=== PATIENT | female | born 1975 | race Caucasian/White ===

== ENCOUNTER 2021-09-14 08:47 | Outpatient (REF) | payer OTHER, SELFPAY ==
--- NOTE | ~2021-09-14 | XR_ITS ---
EXAMINATION: XR SHOULDER, RIGHT CLINICAL INFORMATION: Pain. COMPARISON: None TECHNIQUE: AP external rotation, Grashey, scapular Y, and axillary views of the right shoulder. FINDINGS: There is no evidence of acute fracture or dislocation of the right shoulder. No calcific tendinitis. Glenohumeral joint unremarkable. No significant abnormality of the acromioclavicular joint is seen. There is no widening of the coracoclavicular space. XR/XR shoulder RT min 2V IMPRESSION: No significant bony abnormality of the right shoulder identified.
[2021-09-14 11:26] LABS: Appearance Urine CLOUDY; Color Urine RED; Glucose Urine UA NEG (NEG); Leukocyte Esterase Urine NEG (NEG); Nitrite Urine POS (NEG); Urine Blood 3+ (NEG); Urine Ketones 5 MG/DL (NEG); Urine Protein 2+ MG/DL (NEG-TRACE)
[2021-09-14 11:35] LABS: Hemoglobin 12.5 g/dl (12.0-16.0); Mean Corpuscular HGB Conc 32.1 g/dl (31.0-35.0); Mean Corpuscular Hemoglobin 29.8 pg (27.0-33.0); Mean Corpuscular Volume 93.1 fL (80.0-98.0); Platelet Count 262 X10*3/uL (160-400); Red Blood Count 4.19 X10*6/uL (4.20-5.50); Red Cell Distribution Width 13.5 % (11.0-16.0); White Blood Count 5.4 X10*3/uL (4.8-10.8)
[2021-09-14 11:49] LABS: Alanine Aminotransferase 16 U/L (0-31); Albumin Level 4.1 g/dL (3.5-5.0); Alkaline Phosphatase 56 U/L (39-117); Anion Gap 10 (12-20); Aspartate Amino Transferase 14 U/L (5-31); Bilirubin Total 0.4 mg/dL (0.0-1.0); Blood Urea Nitrogen 11 mg/dL (9-16); Calcium 9.4 mg/dL (8.4-10.2); Carbon Dioxide 28 mmol/L (22-29); Chloride 105 mmol/L (96-108); Cholesterol 185 mg/dL; Estimated Glomerular Filt Rate > 60; Glucose Fasting 95 mg/dL (60-99); HDL Cholesterol 48 mg/dL; LDL Cholesterol Calculated 126 mg/dl; Potassium 4.4 mmol/L (3.3-5.1); Sodium 139 mmol/L (135-145); Total Protein 6.7 g/dL (6.5-8.0); Triglycerides 55 mg/dL
[2021-09-14 12:11] LABS: TSH reflex Free T4 0.69 uIU/mL (0.32-4.0)
[2021-09-14 12:11] LABS: Bacteria Urine TRACE /LPF; Mucus Urine 2+ /LPF; RBC Urine TNTC /HPF (0); Squamous Epithelial Cell Urine 1+ /LPF; WBC Urine 0-2 /HPF (0-4)
== END 2021-09-14 08:48 | disposition home or self-care (01) ==
LOC: HO.HMGCX 08:47
PROVIDERS: PCP Internal Medicine; Visit Provider Internal Medicine
DX: Z00.00 Encounter for general adult medical examination without abnormal findings (principal); M25.511 Pain in right shoulder
CPT/HCPCS: 36415; 73030; 80053; 80061; 81001; 84443; 85027

== ENCOUNTER → 2022-01-19 08:00 | Outpatient (BNVA) | payer OTHER, SELFPAY | PROVIDERS: PCP Internal Medicine; Visit Provider Internal Medicine Rheumatology | DX: I73.00 Raynaud's syndrome without gangrene (principal); M25.561 Pain in right knee; M25.562 Pain in left knee; M25.50 Pain in unspecified joint; R31.9 Hematuria, unspecified; M25.559 Pain in unspecified hip | CPT/HCPCS: 99202 ==

== ENCOUNTER 2022-04-07 07:18 | Outpatient (REF) | payer OTHER, SELFPAY ==
[2022-04-07 11:38] LABS: Appearance Urine Clear; Color Urine Yellow; Glucose Urine UA Negative (Negative); Leukocyte Esterase Urine Trace (Negative); Nitrite Urine Negative (Negative); PH 7.5 (5.0-9.0); Specific Gravity - Urine 1.025 (1.005-1.025); UMIC TRIGGER UA YES; UMIC TRIGGER UACC YES; Urine Blood Negative (Negative); Urine Ketones Negative (Negative); Urine Protein Trace mg/dL (Neg-Trace)
[2022-04-07 11:46] LABS: Bacteria Urine 1+ (None Seen); Hyaline Casts Urine 0-2 /LPF (0-2); RBC Urine 0-2 /HPF (0-2); WBC Urine 0-5 /HPF (0-5)
[2022-04-07 12:08] LABS: Alanine Aminotransferase 13 U/L (0-31); Albumin Level 4.2 g/dL (3.5-5.0); Alkaline Phosphatase 59 U/L (39-117); Anion Gap 15 (12-20); Aspartate Amino Transferase 16 U/L (5-31); Bilirubin Total 0.6 mg/dL (0.0-1.0); Blood Urea Nitrogen 12 mg/dL (9-16); C Reactive Protein 0.31 mg/dL (< or = 0.50); Calcium 9.1 mg/dL (8.4-10.2); Carbon Dioxide 24 mmol/L (22-29); Chloride 105 mmol/L (96-108); Estimated Glomerular Filt Rate > 60; Glucose Random 75 mg/dL (60-115); Potassium 4.1 mmol/L (3.3-5.1); Rheumatoid Factor < 15.0 IU/mL (<15.0); Sodium 140 mmol/L (135-145); Total Protein 6.6 g/dL (6.5-8.0)
[2022-04-07 12:32] LABS: Erythrocyte Sedimentation Rate 9 MM/HR (0-20)
[2022-04-12 13:45] LABS: Anti Nuclear Antibody Screen NEGATIVE (NEGATIVE)
[2022-04-13 13:21] LABS: Anti-Centromere B Antibodies <1.0 NEG AI (<1.0 NEG); Scleroderma 70 Antibody <1.0 NEG AI (<1.0 NEG)
== END 2022-04-07 07:19 | disposition home or self-care (01) ==
LOC: HO.HMGCLDS 07:18
PROVIDERS: Absent Provider Internal Medicine Rheumatology; PCP Internal Medicine; Visit Provider Internal Medicine
DX: I73.00 Raynaud's syndrome without gangrene (principal); M25.561 Pain in right knee; M25.562 Pain in left knee
CPT/HCPCS: 36415; 80053; 81001; 85652; 86038; 86039; 86140; 86235; 86431

== ENCOUNTER 2023-06-15 08:41 | Outpatient (AMB) | payer OTHER, SELFPAY ==
[2023-06-15 08:44] VITALS: BP 120/68; PULSE 79; O2SAT 99; BMI 33.5
--- NOTE | 2023-06-15 08:44 | A.OFFPC_ITS ---
Vital Signs 06/15/23 08:44 Height 5 ft 2 in Weight 183 lb BMI 33.5 BP 120/68 Blood Pressure Location Lt brachial Position Sitting Pulse 79 Pulse Source Pulse Oximeter Pulse Oximetry (%) 99 Oxygen Delivery Method Room Air Intake Visit Reasons: Discuss MRI For Back Intake Note: Pt is here today for a follow up visit to discuss MRI for her back. Allergies bee pollen [BEE POLLEN] Allergy (Intermediate, Unverified 06/15/23 08:46) RASH sulfur [From SULFUR-8] Allergy (Intermediate, Unverified 06/15/23 08:46) FEVER, RASH, fever,hallucinations, fever,hallucinations adhesive Adverse Reaction (Verified 06/15/23 08:46) rash Medication List - Last Reconciled 06/15/23 by Yulia Lambert MD No Known Home Meds Tobacco use date assessed: 06/15/23 Dental Screening Dental Screen Date: 06/15/23 Did you have a dental visit in the last 12 months?: Yes Did you have a dental problem in the last 6 months where you did not have access to dental care?: No Was dental information given to patient?: Patient has dentist HPI Discuss MRI For Back HPI Details Pt presents for f/u Urgent Care visit for sciatica. Pt complains of chronic L>R LE numbness and pain, and L knee pain on and off when walking. She reports her left knee giving out occasionally. Patient was hospitalized for 3 days at [facility] in 2019 with acute sciatica. She had an MRI done and improved with the physical therapy. Patient denies lower extremity weakness, change in bladder or bowel function. For acute sciatica she took Medrol Dosepak and cyclobenzaprine and the pain improved. [facility] Medical History Annual physical exam Hematuria Atopic dermatitis Raynauds disease Shoulder pain, right GERD (gastroesophageal reflux disease) Surgical History H/O bilateral breast reduction surgery Social History Household Members Other:: lives with a partner, daughter addict, Housing: House Housing Other:: Pt show not to answer Patient Tobacco Use Status: Former Tobacco user e-Cigarette/Vaping Use: Never Used service: No Current occupational status: employed Cognitive needs: No Hearing needs: No Vision needs: Yes Questionnaire PHQ-9 Over the last 2 weeks, how often have you been bothered by any of the following problems? 62301 - PHQ-9 Billing: Patient declined-do not bill Source: Developed by Drs. Jake Montilla, Danica Webster, Larry Rivas and colleagues, with an educational naveed from [employer]. Thrive Questionnaire Date Thrive assessed: 06/15/23 I am a: Patient What is your living situation today?: I choose not to answer this question Within the past 12 months, did the food you bought not last and you didn't have the money to get more?: I choose not to answer this question Within the past 12 months, did you worry whether your food would run out before you got money to buy more?: I choose not to answer this question Do you have trouble paying for medicines?: I choose not to answer this question Do you have trouble getting transportation to medical appointments?: I choose not to answer this question Do you have trouble paying your heating and electricity bill?: I choose not to answer this question Do you have trouble taking care of your child, family member or friend?: I choose not to answer this question Do you have trouble with day-to-day activities such as bathing, preparing meals, shopping, managing finances, etc.?: I choose not to answer this question Are you currently unemployed and looking for a job?: I choose not to answer this question Are you interested in more education?: I choose not to answer this question Currently or been in a relationship where the following occur: I choose not to answer this question THRIVE Score: 0 AUDIT C Alcohol Use Questionnaire (AUDIT-C) 1. How often do you have a drink containing alcohol?: Never 3. How often do you have six or more drinks on one occasion?: Never Total Score: 0 MINA-7 AMB Questionnaire MINA-7 Date MINA - 7 assessed: 06/15/23 Source: Developed by Drs. Jake Montilla, Danica Webster, Larry Rivas and colleagues, with an educational naveed from [employer]. MINA-7 Assessment Billing MINA-7 Assessment Tool: pt declined-do not bill Review of Systems Const All systems reviewed & are unremarkable except as noted in HPI and below Reports no additional complaints Eyes Reports no additional complaints ENT Reports no additional complaints Card Reports no additional complaints Resp Reports no additional complaints GI Reports no additional complaints Reports no additional complaints Physical exam (Primary Care) Vital Signs: Last Vital Signs Pulse 79 06/15/23 08:44 BP 120/68 06/15/23 08:44 Pulse Ox 99 06/15/23 08:44 Oxygen Delivery Method Room Air 06/15/23 08:44 BMI result Body Mass Index 33.5 Tobacco/Smoking Status: Tobacco use Status Tobacco use date assessed 06/15/23 06/15/23 08:51 Patient Tobacco Use Status Former Tobacco user 06/15/23 08:51 e-Cigarette/Vaping Use Never Used 06/15/23 08:51 Thrive Assessment: Date of Thrive Assessment Date Thrive assessed 06/15/23 06/15/23 09:22 Currently or been in a relationship where the following occur: I choose not to answer this question Const General: no acute distress HENMT Head: Yes normal to inspection Resp Effort & Inspection: normal respiratory effort Auscultation: clear to auscultation bilaterally Cardio Rhythm: regular rhythm Heart sounds: S1 normal heart sound present and S2 normal heart sound present GI Inspection: Yes normal to inspection Palpation (GI): Soft to palpation Back/Spine/Pelvis Other: Paraspinal tenderness in lower lumbar region left more than right, straight leg rising 90 degrees bilaterally, deep tendon reflexes 1+ bilaterally, motor strength 5/5 both lower extremities Assessment and Plan Assessment & Plan (1) Chronic lumbar pain: Comment: L SPINE X-RAY DJD L3-4, 06/20 Code(s): M54.50 - Low back pain, unspecified; G89.29 - Other chronic pain Plan: REFER FOR PHYSICAL THERAPY, and return in 1 month for physical (2) Annual physical exam: Code(s): Z00.00 - Encounter for general adult medical examination without abnormal findings Plan: Patient will return for a physical with a fasting labs before (3) GERD (gastroesophageal reflux disease): Comment: f/u [facility], EGD and colonoscopy 2021. esophageal dilation 2021 Code(s): K21.9 - Gastro-esophageal reflux disease without esophagitis Orders: Orders PT Evaluation and Treatment Today G89.29 - Other chronic pain, M25.561 - Pain in right knee, M25.562 - Pain in left knee, M54.50 - Low back pain, unspecified, Z00.00 - Encounter for general adult medical examination without abnormal findings Comprehensive [place]. Panel Fast Today K21.9 - Gastro-esophageal reflux disease without esophagitis, Z00.00 - Encounter for general adult medical examination without abnormal findings Complete Blood Count Auto Diff Today K21.9 - Gastro-esophageal reflux disease without esophagitis, Z00.00 - Encounter for general adult medical examination without abnormal findings Vitamin B12 and Folate Today K21.9 - Gastro-esophageal reflux disease without esophagitis, Z00.00 - Encounter for general adult medical examination without abnormal findings Hemoglobin A1c Today K21.9 - Gastro-esophageal reflux disease without esophagitis, Z00.00 - Encounter for general adult medical examination without abnormal findings Lipid Panel Today K21.9 - Gastro-esophageal reflux disease without esophagitis, Z00.00 - Encounter for general adult medical examination without abnormal findings UA w Microscopic Today K21. - Gastro-esophageal reflux disease without esophagitis, Z00.00 - Encounter for general adult medical examination without abnormal findings Coding Level of Care Code Est Pt Level 3 (58058) Diagnoses Chronic lumbar pain M54.50; G89.29 Annual physical exam Z00.00 GERD (gastroesophageal reflux disease) K21.9
== END 2023-06-15 10:56 | disposition home or self-care (01) ==
PROVIDERS: PCP Internal Medicine; Visit Provider Internal Medicine
DX: M54.50 Low back pain, unspecified (principal); G89.29 Other chronic pain; K21.9 Gastro-esophageal reflux disease without esophagitis
CPT/HCPCS: 99213

== ENCOUNTER 2023-07-06 10:51 | Outpatient (REF) | payer OTHER, SELFPAY ==
[2023-07-06 13:22] LABS: MANUAL DIFF FLAG NO
[2023-07-06 13:32] LABS: Basophils Percent Auto 0.5 % (0-2); Eosinophils Absolute Auto 0.1 X10*3/uL (0.0-0.4); Eosinophils Percent Auto 1.3 % (0-4); Hematocrit 39.1 % (37.0-47.0); Hemoglobin 12.7 g/dl (12.0-16.0); Imm Gran Abs Auto 0.02 X10*3/uL (0.00-0.03); Imm Gran Pct Auto 0.3 % (0.0-0.4); Lymphocytes Absolute Auto 1.3 X10*3/uL (1.2-4.9); Lymphocytes Percent Auto 20.5 % (20-40); Mean Corpuscular HGB Conc 32.5 g/dl (31.0-35.0); Mean Corpuscular Hemoglobin 30.4 pg (27.0-33.0); Mean Corpuscular Volume 93.5 fL (80.0-98.0); Mean Platelet Volume 11.9 fL (9.4-12.3); Monocytes Absolute Auto 0.3 X10*3/uL (0.1-1.2); Monocytes Percent Auto 5.4 % (2-11); Neutrophils Absolute Auto 4.5 x10*3/uL (2.0-8.3); Platelet Count 230 X10*3/uL (160-400); Red Blood Count 4.18 X10*6/uL (4.20-5.50); Red Cell Distribution Width 12.9 % (11.0-16.0); White Blood Count 6.2 X10*3/uL (4.8-10.8)
[2023-07-06 14:16] LABS: Alanine Aminotransferase 11 U/L (0-31); Albumin Level 3.8 g/dL (3.5-5.0); Alkaline Phosphatase 57 U/L (39-117); Anion Gap 12 (12-20); Aspartate Amino Transferase 14 U/L (5-31); Bilirubin Total 0.5 mg/dL (0.0-1.0); Blood Urea Nitrogen 9 mg/dL (9-16); Calcium 8.8 mg/dL (8.4-10.2); Carbon Dioxide 23 mmol/L (22-29); Chloride 107 mmol/L (96-108); Cholesterol 170 mg/dL (<200); Estimated Glomerular Filt Rate > 60; Glucose Fasting 87 mg/dL (60-99); HDL Cholesterol 47 mg/dL (>40); LDL Cholesterol Calculated 107 mg/dL (<100); Sodium 138 mmol/L (135-145); Total Protein 6.3 g/dL (6.5-8.0); Triglycerides 81 mg/dL (<150)
[2023-07-06 15:02] LABS: Estimated Average Glucose 97 mg/dL
[2023-07-06 15:33] LABS: Vitamin B12 221 pg/mL (200-900)
== END 2023-07-06 10:52 | disposition home or self-care (01) ==
LOC: HO.HMGCLDS 10:51
PROVIDERS: PCP Internal Medicine; Visit Provider Internal Medicine
DX: Z00.00 Encounter for general adult medical examination without abnormal findings (principal); K21.9 Gastro-esophageal reflux disease without esophagitis
CPT/HCPCS: 36415; 80053; 80061; 82607; 82746; 83036; 85025

== ENCOUNTER 2023-07-27 13:21 | Outpatient (AMB) | payer OTHER, SELFPAY ==
[2023-07-27 13:48] VITALS: BP 116/64; PULSE 66; O2SAT 99; BMI 33.5
--- NOTE | 2023-07-27 13:48 | A.OFFPC_ITS ---
Vital Signs 07/27/23 13:48 Height 5 ft 2 in Weight 183 lb BMI 33.5 BP 116/64 Blood Pressure Location Lt brachial Position Sitting Pulse 66 Pulse Source Pulse Oximeter Pulse Oximetry (%) 99 Oxygen Delivery Method Room Air Intake Visit Reasons: Annual PE Intake Note: Pt is here today for PE. Allergies bee pollen [BEE POLLEN] Allergy (Intermediate, Unverified 07/27/23 13:50) RASH sulfur [From SULFUR-8] Allergy (Intermediate, Unverified 07/27/23 13:50) FEVER, RASH, fever,hallucinations, fever,hallucinations adhesive Adverse Reaction (Verified 07/27/23 13:50) rash Medication List - Last Reconciled 07/27/23 by Yulia Lambert MD No Known Home Meds Tobacco use date assessed: 07/27/23 HPI Annual PE HPI Details Patient presents for physical. She complains of persistent lower back pain radiating to left lower extremity and intermittent tingling numbness of the left leg radiating to big toe. Patient had physical therapy and has been doing home exercises for the last 6 weeks without significant improvement. She denies change in bowel or bladder habits, weakness in the left lower extremity. Patient complains of chronic left knee pain and stiffness worse when walking. [facility] Medical History (Updated 07/27/23 @ 14:27 by Yulia Lambert MD) Annual physical exam Hematuria Atopic dermatitis Raynauds disease Shoulder pain, right GERD (gastroesophageal reflux disease) Surgical History H/O bilateral breast reduction surgery Social History Household Members Other:: lives with a partner, daughter addict, Housing: House Housing Other:: Pt show not to answer Patient Tobacco Use Status: Former Tobacco user e-Cigarette/Vaping Use: Never Used service: No Current occupational status: employed Cognitive needs: No Hearing needs: No Vision needs: Yes Questionnaire Thrive Questionnaire Date Thrive assessed: 06/15/23 MINA-7 AMB Questionnaire MINA-7 Date MINA - 7 assessed: 06/15/23 Source: Developed by Drs. Jake Montilla, Danica Webster, Larry Rivas and colleagues, with an educational naveed from [employer]. Review of Systems Const All systems reviewed & are unremarkable except as noted in HPI and below Reports no additional complaints Eyes Reports no additional complaints ENT Reports no additional complaints Card Reports no additional complaints Resp Reports no additional complaints GI Reports no additional complaints Reports no additional complaints Physical exam (Primary Care) Vital Signs: Last Vital Signs Pulse 66 07/27/23 13:48 BP 116/64 07/27/23 13:48 Pulse Ox 99 07/27/23 13:48 Oxygen Delivery Method Room Air 07/27/23 13:48 BMI result Body Mass Index 33.5 Tobacco/Smoking Status: Tobacco use Status Tobacco use date assessed 07/27/23 07/27/23 13:54 Patient Tobacco Use Status Former Tobacco user 07/27/23 13:54 e-Cigarette/Vaping Use Never Used 07/27/23 13:54 Thrive Assessment: Date of Thrive Assessment Date Thrive assessed 06/15/23 07/27/23 13:54 Const General: no acute distress HENMT Ears: hearing grossly normal bilaterally Mouth: Normal oral and palatal mucosa present Throat: Yes posterior oropharynx normal Eyes General: appearance normal, both eyes and all related structures Neck Neck: Yes no lymphadenopathy and Yes supple Resp Effort & Inspection: normal respiratory effort Auscultation: clear to auscultation bilaterally Cardio Rhythm: regular rhythm Heart sounds: S1 normal heart sound present and S2 normal heart sound present GI Inspection: Yes normal to inspection Palpation (GI): Soft to palpation Percussion: Yes normal to percussion Auscultation: normal bowel sounds Back/Spine/Pelvis Other: There is tenderness over lower lumbar spinal and paraspinal region left more than right, straight leg rising 45 degrees on the left 90 degrees on the right, both hips with full range of motion. there is a reproducible tenderness over left trochanteric area. there is slightly decreased range of motion of left knee no soft tissue swelling erythema or warmth, deep tendon reflexes are 1+ bilaterally, heel and toe walk intact bilaterally, motor strength 5/5 bilaterally in LE Assessment and Plan Assessment & Plan (1) Sciatica: Code(s): M54.30 - Sciatica, unspecified side Plan: FOR PERSISTENT SCIATICA WITH LEFT LOWER EXTREMITY NUMBNESS MRI LUMBAR SPINE WILL BE OBTAINED to rule out disc herniation. Patient will continue physical therapy and meloxicam is prescribed for 10 days (2) Knee pain, left: Code(s): M25.562 - Pain in left knee Plan: Check x-ray of left knee (3) Hx of mammogram: Comment: [facility] 2022 Code(s): Z92.89 - Personal history of other medical treatment (4) Chronic lumbar pain: Comment: L SPINE X-RAY DJD L3-4, 06/20 Code(s): M54.50 - Low back pain, unspecified; G89.29 - Other chronic pain (5) Annual physical exam: Code(s): Z00.00 - Encounter for general adult medical examination without abnormal findings Plan: Well-balanced diet regular physical activity discussed with the patient. She follows up with research librarian for pelvic exam and it is up-to-date with the mammogram and colonoscopy (6) GERD (gastroesophageal reflux disease): Comment: f/u [facility], EGD and colonoscopy 2021. esophageal dilation 2021 Code(s): K21.9 - Gastro-esophageal reflux disease without esophagitis Plan: Continue PPI. Orders: Orders MR lumbar spine wo con Today M54.30 - Sciatica, unspecified side XR knee LT 2V Today M25.562 - Pain in left knee PT Evaluation and Treatment Today G89.29 - Other chronic pain, M54.30 - Sciatica, unspecified side, M54.50 - Low back pain, unspecified Medications: New meloxicam 15 mg PO DAILY 10 tabs 0RF Coding Level of Care Code Est Pt Prev Care 40-64y(60286) Diagnoses Sciatica M54.30 Knee pain, left M25.562 Hx of mammogram Z92.89 Chronic lumbar pain M54.50; G89.29 Annual physical exam Z00.00 GERD (gastroesophageal reflux disease) K21.9
== END 2023-07-27 14:56 | disposition home or self-care (01) ==
PROVIDERS: PCP Internal Medicine; Visit Provider Internal Medicine
DX: Z00.00 Encounter for general adult medical examination without abnormal findings (principal); M54.30 Sciatica, unspecified side; M25.562 Pain in left knee; Z92.89 Personal history of other medical treatment; M54.50 Low back pain, unspecified; G89.29 Other chronic pain; K21.9 Gastro-esophageal reflux disease without esophagitis
CPT/HCPCS: 99396

== ENCOUNTER 2023-07-27 14:41 | Outpatient (REF) | payer OTHER, SELFPAY ==
--- NOTE | ~2023-07-27 | XR_ITS ---
EXAMINATION: XR KNEE, LEFT CLINICAL INFORMATION: Pain in left knee COMPARISON: None available. TECHNIQUE: Four views of the left knee. FINDINGS: The tricompartment joint space is preserved. There is no visible acute fracture or dislocation. No bony erosive changes. No joint effusion. XR/XR knee LT 2V IMPRESSION: Unremarkable left knee exam.
== END 2023-07-27 14:42 | disposition home or self-care (01) ==
LOC: HO.HMGCX 14:41
PROVIDERS: PCP Internal Medicine; Visit Provider Internal Medicine
DX: M25.562 Pain in left knee (principal)
CPT/HCPCS: 73560

== ENCOUNTER 2023-07-30 11:42 | Outpatient (REF) | payer OTHER, SELFPAY | END 2023-07-30 11:43 | disposition home or self-care (01) | LOC: HO.HMGCLNP 11:42 | PROVIDERS: Visit Provider Internal Medicine | DX: Z13.89 Encounter for screening for other disorder (principal) ==

== ENCOUNTER 2023-08-28 19:43 | Outpatient (REF) | payer OTHER, SELFPAY ==
--- NOTE | ~2023-08-28 | MR_ITS ---
MR LUMBAR SPINE WITHOUT IV CONTRAST CLINICAL INFORMATION: Sciatica. COMPARISON: Lumbar spine MRI 06/10/2018. TECHNIQUE: MRI of the lumbar spine was obtained using routine sequences without contrast. FINDINGS: There are 5 nonrib-bearing lumbar-type vertebral bodies. Hypoplastic ribs suspected at the lowermost thoracic type segment. The last completely developed intervertebral disc is considered L5-S1. There is no bone marrow edema. There are no acute fractures. There is mild disc volume loss and there is disc desiccation at L2-L3 and L4-L5. Small chronic endplate Schmorl's nodes at T11, T12, and L4. Conus terminates at the T12-L1 level. There are no significant extra spinal soft tissue findings. L1-L2: Disc contour is normal. No central canal stenosis and no foraminal stenosis. L2-L3: Small diffuse annular disc bulge. There is no central canal stenosis and there is no foraminal stenosis. L3-L4: There is a large left lateral disc protrusion resulting in moderate to severe left-sided foraminal stenosis and compression of the foraminal and extraforaminal segments of the exiting left L3 nerve root. No central canal and no right foraminal stenosis. L4-L5: A left lateral disc protrusion results in moderate left-sided foraminal stenosis and mass effect on the extraforaminal left L4 nerve root. No central canal and no significant right foraminal stenosis. L5-S1: Disc contour is normal. There is bilateral facet arthropathy. There is no central canal stenosis. No foraminal stenosis. MR/MR lumbar spine wo con IMPRESSION: * At L3-L4, there is a large left lateral disc protrusion resulting in moderate to severe left-sided foraminal stenosis and compression of the foraminal and extraforaminal segments of the exiting left L3 nerve root. * At L4-L5, a left lateral disc protrusion results in moderate left-sided foraminal stenosis and mass effect on the extraforaminal left L4 nerve root. * Additional spondylitic changes as discussed above. There is no severe central canal stenosis within the lumbar spine.
== END 2023-08-28 19:44 | disposition home or self-care (01) ==
LOC: HO.MRI 19:43
PROVIDERS: PCP Internal Medicine; Visit Provider Internal Medicine
DX: M54.30 Sciatica, unspecified side (principal)
CPT/HCPCS: 72148

== ENCOUNTER 2024-01-09 10:06 | Outpatient (AMB) | payer OTHER, SELFPAY ==
[2024-01-09 10:11] VITALS: BP 114/76; PULSE 57; O2SAT 100; BMI 33.5
--- NOTE | 2024-01-09 10:11 | A.OFFPC_ITS ---
Vital Signs 01/09/24 10:11 Height 5 ft 2 in Weight 183 lb BMI 33.5 BP 114/76 Blood Pressure Location Lt brachial Position Sitting Pulse 57 Pulse Source Pulse Oximeter Pulse Oximetry (%) 100 Oxygen Delivery Method Room Air Intake Visit Reasons: Knee problems Intake Note: Pt is here today for a sick visit. Pt c/o L knee pain and swelling. Allergies bee pollen [BEE POLLEN] Allergy (Intermediate, Unverified 01/09/24 10:11) RASH sulfur [From SULFUR-8] Allergy (Intermediate, Unverified 01/09/24 10:11) FEVER, RASH, fever,hallucinations, fever,hallucinations adhesive Adverse Reaction (Verified 01/09/24 10:11) rash Medication List - Last Reconciled 01/09/24 by Yulia Lambert MD meloxicam 15 mg PO DAILY Tobacco use date assessed: 01/09/24 Dental Screening Dental Screen Date: 06/15/23 HPI Knee problems HPI Details Pt c/o persistent chronic L knee pain and swelling under the left knee on and off since April when patient developed acute sciatica. The pain is worse when patient is walking. She took meloxicam with some relief. Patient has been doing some home exercises without significant improvement of the pain. Knee x-ray was negative and MRI was declined by her previous insurance. [facility] Medical History Annual physical exam Hematuria Atopic dermatitis Raynauds disease Shoulder pain, right GERD (gastroesophageal reflux disease) Surgical History H/O bilateral breast reduction surgery Social History Household Members Other:: lives with a partner, daughter addict, Housing: House Housing Other:: Pt show not to answer Patient Tobacco Use Status: Former Tobacco user e-Cigarette/Vaping Use: Never Used service: No Current occupational status: employed Cognitive needs: No Hearing needs: No Vision needs: Yes Questionnaire Thrive Questionnaire Date Thrive assessed: 01/09/24 I am a: Patient What is your living situation today?: I choose not to answer this question Within the past 12 months, did the food you bought not last and you didn't have the money to get more?: I choose not to answer this question Within the past 12 months, did you worry whether your food would run out before you got money to buy more?: I choose not to answer this question Do you have trouble paying for medicines?: I choose not to answer this question Do you have trouble getting transportation to medical appointments?: I choose not to answer this question Do you have trouble paying your heating and electricity bill?: I choose not to answer this question Do you have trouble taking care of your child, family member or friend?: I choose not to answer this question Do you have trouble with day-to-day activities such as bathing, preparing meals, shopping, managing finances, etc.?: I choose not to answer this question Are you currently unemployed and looking for a job?: I choose not to answer this question Are you interested in more education?: I choose not to answer this question Please select the resources that you would like help with: None Currently or been in a relationship where the following occur: I choose not to answer THRIVE Score: 0 AUDIT C Alcohol Use Questionnaire (AUDIT-C) 1. How often do you have a drink containing alcohol?: Monthly or less 2. How many drinks containing alcohol do you have on a typical day when you are drinking?: 1 or 2 3. How often do you have six or more drinks on one occasion?: Never Total Score: 1 MINA-7 AMB Questionnaire MINA-7 Date MINA - 7 assessed: 06/15/23 Feeling nervous, anxious, or on edge: 0 = Not at all Not being able to stop or control worryin = Not at all Worrying too much about different things: 0 = Not at all Trouble relaxin = Not at all Being so restless that it is hard to sit still: 0 = Not at all Becoming easily annoyed or irritable: 0 = Not at all Feeling afraid as if something awful might happen: 0 = Not at all Total MINA-7 score (0-4 normal; 5-9 mild; 10-14 moderate; 15-21 severe): 0 Source: Developed by Drs. Jake Montilla, Danica Webster, Larry taylor nd colleagues, with an educational naveed from [employer]. MINA-7 Assessment Billing MINA-7 Assessment Tool: MINA-7 Assessment 64232 Review of Systems Const All systems reviewed & are unremarkable except as noted in HPI and below Card Reports no additional complaints Resp Reports no additional complaints GI Reports no additional complaints Reports no additional complaints Physical exam (Primary Care) Vital Signs: Last Vital Signs Pulse 57 01/09/24 10:11 BP 114/76 01/09/24 10:11 Pulse Ox 100 01/09/24 10:11 Oxygen Delivery Method Room Air 01/09/24 10:11 BMI result Body Mass Index 33.5 Tobacco/Smoking Status: Tobacco use Status Tobacco use date assessed 01/09/24 01/09/24 10:15 Patient Tobacco Use Status Former Tobacco user 01/09/24 10:15 e-Cigarette/Vaping Use Never Used 01/09/24 10:15 Thrive Assessment: Date of Thrive Assessment Date Thrive assessed 01/09/24 01/09/24 10:15 Currently or been in a relationship where the following occur: I choose not to answer Const General: no acute distress HENMT Head: Yes normal to inspection Eyes General: appearance normal, both eyes and all related structures Resp Effort & Inspection: normal respiratory effort Cardio Rhythm: regular rhythm Heart sounds: S1 normal heart sound present and S2 normal heart sound present Extrem Other: Left knee with slightly decreased range of motion medial aspect tenderness, there is soft tissue swelling below left knee no erythema or warmth Assessment and Plan Assessment & Plan (1) Swelling of left lower extremity: Code(s): M79.89 - Other specified soft tissue disorders Plan: Obtain ultrasound to rule out DVT (2) Tear of meniscus of left knee: Code(s): S83.207A - Unspecified tear of unspecified meniscus, current injury, left knee, initial encounter Plan: Schedule an MRI to evaluate for meniscus tear (3) Overweight: Code(s): E66.3 - Overweight Plan: Weight loss discussed with the patient she requested referral to band instrument repairer Orders: Orders US venous duplex LE LT Today M79.89 - Other specified soft tissue disorders TSH reflex Free T4 Today E66.3 - Overweight MR knee LT wo con Today S83.207A - Unspecified tear of unspecified meniscus, current injury, left knee, initial encounter Referrals Nutrition/Dietitian Referral E66.3 - Overweight Medications: Refilled meloxicam 15 mg PO DAILY 30 tabs 0RF Coding Level of Care Code Est Pt Level 3 (83251) Diagnoses Swelling of left lower extremity M79.89 Tear of meniscus of left knee S83.207A Overweight E66.3 Additional Codes MINA-7 Assessment Billing - MINA-7 Assessment Tool: MINA-7 Assessment 31059 ([id number])
== END 2024-01-09 11:22 | disposition home or self-care (01) ==
PROVIDERS: PCP Internal Medicine; Visit Provider Internal Medicine
DX: M79.89 Other specified soft tissue disorders (principal); S83.207A Unspecified tear of unspecified meniscus, current injury, left knee, initial encounter; E66.3 Overweight; Z68.33 Body mass index [BMI] 33.0-33.9, adult
CPT/HCPCS: 99213

== ENCOUNTER 2024-01-09 11:09 | Outpatient (REF) | payer OTHER, SELFPAY ==
[2024-01-09 14:03] LABS: TSH reflex Free T4 0.77 uIU/mL (0.32-4.0)
== END 2024-01-09 11:10 | disposition home or self-care (01) ==
LOC: HO.HMGCLDS 11:09
PROVIDERS: PCP Internal Medicine; Visit Provider Internal Medicine
DX: E66.3 Overweight (principal)
CPT/HCPCS: 36415; 84443

== ENCOUNTER 2024-01-09 11:23 | Outpatient (REF) | payer OTHER, SELFPAY ==
--- NOTE | ~2024-01-09 | US_ITS ---
EXAMINATION: US VENOUS ULTRASOUND WITH DOPPLER LOWER EXTREMITY, LEFT CLINICAL INFORMATION: Left knee swelling. COMPARISON: None available. TECHNIQUE: Ultrasound of the deep veins is performed from the hip to the calf with compression sonography and color and pulse Doppler assessment. Spectral analysis with color-flow imaging is performed. FINDINGS: There is normal venous compression and respiratory variation and augmented flow. The visualized common femoral vein, superficial femoral vein, profunda femoral vein, popliteal vein, and the trifurcation region shows no evidence of deep venous thrombosis. If the patient's symptoms persist, followup ultrasound in 5 days 7 days might be of value to exclude proximal propagation from a non-visualized calf vein. US/US venous duplex LE IMPRESSION: No DVT demonstrated in the left lower extremity.
== END 2024-01-09 11:24 | disposition home or self-care (01) ==
LOC: HO.HMGCX 11:23
PROVIDERS: PCP Internal Medicine; Visit Provider Internal Medicine
DX: M79.605 Pain in left leg (principal); M79.89 Other specified soft tissue disorders
CPT/HCPCS: 93971

== ENCOUNTER 2024-01-29 08:27 | Outpatient (AMB) | payer OTHER, SELFPAY ==
--- NOTE | 2024-01-29 08:31 | MHC.AMNUTRGE ---
VS Expanded 01/29/24 08:32 01/29/24 08:36 Height 5 ft 2 in 5 ft 2 in Weight 188 lb 4.396 oz 188 lb BMI 34.4 34.4 Intake Visit Reasons: Overweight/CONFIRMED Allergies bee pollen [BEE POLLEN] Allergy (Intermediate, Unverified 01/09/24 10:11) RASH sulfur [From SULFUR-8] Allergy (Intermediate, Unverified 01/09/24 10:11) FEVER, RASH, fever,hallucinations, fever,hallucinations adhesive Adverse Reaction (Verified 01/09/24 10:11) rash Nutrition Presentation Details: Pt presents for MNT for overweight. Pt was referredb y PCP, Dr. Lambert BS Monitoring Most Recent Diabetes Results: Cholesterol 170 mg/dL (<200) 07/06/23 HDL Cholesterol 47 mg/dL (>40) 07/06/23 Triglycerides 81 mg/dL (<150) 07/06/23 Creatinine 0.63 mg/dL (0.5-1.4) 07/06/23 Blood Urea Nitrogen 9 mg/dL (9-16) 07/06/23 Sodium 138 mmol/L (135-145) 07/06/23 Potassium 4.0 mmol/L (3.3-5.1) 07/06/23 Chloride 107 mmol/L (96-108) 07/06/23 Carbon Dioxide 23 mmol/L (22-29) 07/06/23 Calcium 8.8 mg/dL (8.4-10.2) 07/06/23 AST 14 U/L (5-31) 07/06/23 ALT 11 U/L (0-31) 07/06/23 Total Protein 6.3 g/dL (6.5-8.0) L 07/06/23 Albumin 3.8 g/dL (3.5-5.0) 07/06/23 OWK-Bpkqhre-Mp.Jeor Equation Height: 5 ft 2 in Weight: 188 lb Resting Metabolic Rate: 1438.99 Calculated Activity Level: Sedentary Calories Needed to Maintain Weight: 1726.79 Diagnosis Nutrition problem #1: food nutri know defi As related to (etiology) #1: diagnosis As evidenced by (sign/symptom) #1: knowledge deficit of diet [facility] Medical History Annual physical exam Hematuria Atopic dermatitis Raynauds disease Shoulder pain, right GERD (gastroesophageal reflux disease) Surgical History H/O bilateral breast reduction surgery Social History Household Members Other:: lives with a partner, daughter addict, Housing: House Housing Other:: Pt show not to answer Patient Tobacco Use Status: Former Tobacco user e-Cigarette/Vaping Use: Never Used service: No Current occupational status: employed Cognitive needs: No Hearing needs: No Vision needs: Yes Assessment & Plan Assessment & Plan (1) Obesity (BMI 30.0-34.9): Code(s): E66.9 - Obesity, unspecified Category: Medical Plan: Wt: 85 Kg ( 01/2024 ) Est kcal needs as per MSJ: 1700 (40% carb, 30% protein/fat) Est fluid needs as per 25-30 ml/d: 2600 Est prot per day as per 1 g/kg bw: 85 Recommend fiber intake : 8-10 g per day and gradually increase to 25-28 g per day for women and 35-38 g for men or as tolerated Recommend sodium intake per day : less than 2000 mg Educated patient on: ( R = reviewed V = verbalizes understanding N/R = needs review N/A = not applicable Food sources of carbohydrate, adequate serving sizes and its role in various health conditions: R Differences between complex carbohydrates a simple carbohydrates, role of fiber in diet: R V N/R Lean protein sources of foods: R Differences between types of fats and role in diet (mono on saturated fat fatty acids, saturated fatty acids, trans fats): R V N/R Food sources of sodium in salt and healthy modifications for heart health in kidney health: R V R/V Vitamins and minerals: R V N/R Healthy plate method concept: R Physical activity: Benefits a precaution: R V N/R Patient Instructions: Practice mindful eating Follow healthy plate method at dinner Coding Level of Care Code Nutr Indiv Intake (27012) Diagnoses Obesity (BMI 30.0-34.9) E66.9 Time Spent (min) 30
[2024-01-29 08:32] VITALS: BMI 34.4
[2024-01-31 14:02] VITALS: BMI 34.4
== END 2024-01-29 09:11 | disposition home or self-care (01) ==
PROVIDERS: PCP Internal Medicine; Visit Provider Dietitian, Registered
DX: E66.9 Obesity, unspecified (principal)

== ENCOUNTER → 2024-01-29 08:27 | Outpatient (BNVA) | payer OTHER, SELFPAY | PROVIDERS: PCP Internal Medicine; Visit Provider Dietitian, Registered | DX: E66.3 Overweight (principal); Z68.34 Body mass index [BMI] 34.0-34.9, adult; Z71.3 Dietary counseling and surveillance | CPT/HCPCS: 97802 ==

== ENCOUNTER 2024-02-24 09:04 | Outpatient (REF) | payer OTHER, SELFPAY ==
--- NOTE | ~2024-02-24 | MR_ITS ---
EXAMINATION: MR KNEE WITHOUT CONTRAST, LEFT CLINICAL INFORMATION: Left knee pain, swelling, decreased range of motion, instability, numbness. Evaluate for a meniscal tear. COMPARISON: Left knee radiographs dated 07/27/2023. TECHNIQUE: MRI of the knee without contrast was performed using routine sequences on a high-field scanner. FINDINGS: MENISCI: Medial Meniscus: Intact. Lateral Meniscus: Intact. LIGAMENTS: Cruciate: Mildly increased T2 signal within the anterior cruciate ligament which could represent normal variation versus very early mucoid degeneration. No measurable tear. Intact posterior cruciate ligament. Collateral: Intact. EXTENSOR MECHANISM: Intact quadriceps and patellar tendons. No patella merrick. TT TG distance within normal limits. Mild edema within the suprapatellar fat pad which could indicate a degree of fat pad impingement. ARTICULAR CARTILAGE/BONE: Patellofemoral Compartment: Intact articular cartilage. Medial Compartment: Intact articular cartilage. Lateral Compartment: Intact articular cartilage. JOINT FLUID AND BURSAE: Trace joint effusion. MR/MR knee LT wo con IMPRESSION: 1. No acute meniscal or ligamentous injury. 2. Mildly increased T2 signal within the anterior cruciate ligament which could represent normal variation versus very early mucoid degeneration. No measurable tear. 3. Mild edema within the suprapatellar fat pad which could indicate a degree of fat pad impingement. 4. Trace joint effusion. Electronically signed by: Brent Sampson MD 02/26/2024 09:01 PM EDT
== END 2024-02-24 09:05 | disposition home or self-care (01) ==
LOC: HO.MRI 09:04
PROVIDERS: PCP Internal Medicine; Visit Provider Internal Medicine
DX: S83.207A Unspecified tear of unspecified meniscus, current injury, left knee, initial encounter (principal)
CPT/HCPCS: 73721

== ENCOUNTER 2024-08-22 12:52 | Outpatient (AMB) | payer OTHER, SELFPAY ==
[2024-08-22 12:59] VITALS: BP 118/72; PULSE 62; RESP 20; TEMP 36.9; O2SAT 99; BMI 32.4
--- NOTE | 2024-08-22 12:59 | A.OFFPC_ITS ---
Vital Signs 08/22/24 12:59 Height 5 ft 2 in Weight 177 lb BMI 32.4 BP 118/72 Blood Pressure Location Rt brachial Position Sitting Respiration 20 Pulse 62 Pulse Source Pulse Oximeter Temp 98.4 F Temp Source Oral Pulse Oximetry (%) 99 Oxygen Delivery Method Room Air Intake Visit Reasons: Annual PE Intake Note: Pt is here today for PE.Pt needs a refill on Epi pen. Allergies bee pollen [BEE POLLEN] Allergy (Intermediate, Unverified 08/22/24 13:05) RASH sulfur [From SULFUR-8] Allergy (Intermediate, Unverified 08/22/24 13:05) FEVER, RASH, fever,hallucinations, fever,hallucinations adhesive Adverse Reaction (Verified 08/22/24 13:05) rash Medication List - Last Reconciled 08/22/24 by Yulia Lambert MD azelaic acid 15% 1 appl topical BID Tobacco use date assessed: 08/22/24 Dental Screening Dental Screen Date: 08/22/24 Did you have a dental visit in the last 12 months?: Yes Did you have a dental problem in the last 6 months where you did not have access to dental care?: No Was dental information given to patient?: Patient has dentist HPI Annual PE HPI Details Patient presents for a physical. She has been decreasing caloric intake and increasing physical activity for over 6 months and has not been able to lose weight. She tried weight watchers unsuccessfully. She is interested in trying GLP 1 agonist to facilitate weight loss. Patient complains of worsening rosacea. She has been using hydrocortisone cream on her face as recommended by dermatology but have noticed the skin becomes more irritated erythematous. She complains of chronic left knee pain and complete physical therapy. Patient normal x-ray and MRI and is established with orthopedic surgeon she is contemplating getting cortisone injections both like to lose weight first. Patient is going to vacation to [facility] for 1 week for her friend's wedding. [facility] Medical History Annual physical exam Hematuria Atopic dermatitis Raynauds disease Shoulder pain, right GERD (gastroesophageal reflux disease) Surgical History H/O bilateral breast reduction surgery Family History Father No problems noted. Mother Hypertension Social History Household Members Other:: lives with a partner, daughter addict, Housing: House Housing Other:: Pt show not to answer Patient Tobacco Use Status: Former Tobacco user e-Cigarette/Vaping Use: Never Used service: No Current occupational status: employed Cognitive needs: No Hearing needs: No Vision needs: Yes Questionnaire PHQ-9 Over the last 2 weeks, how often have you been bothered by any of the following problems? 1. Little interest or pleasure in doing things: not at all 2. Feeling down, depressed, or hopeless: not at all 3. Trouble falling or staying asleep, or sleeping too much: not at all 4. Feeling tired or having little energy: several days 5. Poor appetite or overeating: not at all 6. Feeling bad about yourself - or that you are a failure or have let yourself or your family down: not at all 7. Trouble concentrating on things, such as reading the newspaper or watching television: not at all 8. Moving or speaking so slowly that other people could have noticed. Or the opposite - being so fidgety or restless that you have been moving around a lot more than usual: not at all 9. Thoughts that you would be better off or of hurting yourself in some way: not at all Total score: 1 Depression Screening Interpretation: Negative Depression Screening Done: Yes 54172 - PHQ-9 Billing: Yes Source: Developed by Drs. Jake Montilla, Danica Webster, Larry Rivas and colleagues, with an educational naveed from [employer]. Thrive Questionnaire Date Thrive assessed: 08/22/24 I am a: Patient What is your living situation today?: I have a steady place to live Within the past 12 months, did the food you bought not last and you didn't have the money to get more?: Never true Within the past 12 months, did you worry whether your food would run out before you got money to buy more?: Never true Do you have trouble paying for medicines?: No Do you have trouble getting transportation to medical appointments?: No Do you have trouble paying your heating and electricity bill?: No Do you have trouble taking care of your child, family member or friend?: No Do you have trouble with day-to-day activities such as bathing, preparing meals, shopping, managing finances, etc.?: No Are you currently unemployed and looking for a job?: No Are you interested in more education?: No Please select the resources that you would like help with: None Currently or been in a relationship where the following occur: No concerns reported THRIVE Score: 0 AUDIT C Alcohol Use Questionnaire (AUDIT-C) 1. How often do you have a drink containing alcohol?: Monthly or less 2. How many drinks containing alcohol do you have on a typical day when you are drinking?: 1 or 2 3. How often do you have six or more drinks on one occasion?: Never Total Score: 1 MINA-7 AMB Questionnaire MINA-7 Date MINA - 7 assessed: 08/22/24 Feeling nervous, anxious, or on edge: 0 = Not at all Not being able to stop or control worryin = Not at all Worrying too much about different things: 0 = Not at all Trouble relaxin = Not at all Being so restless that it is hard to sit still: 0 = Not at all Becoming easily annoyed or irritable: 0 = Not at all Feeling afraid as if something awful might happen: 0 = Not at all Total MINA-7 score (0-4 normal; 5-9 mild; 10-14 moderate; 15-21 severe): 0 Source: Developed by Drs. Jake Montilla, Danica Webster, Larry Rivas and colleagues, with an educational naveed from [employer]. MINA-7 Assessment Billing MINA-7 Assessment Tool: MINA-7 Assessment 86501 Review of Systems Const All systems reviewed & are unremarkable except as noted in HPI and below Eyes Reports no additional complaints ENT Reports no additional complaints Card Reports no additional complaints Resp Reports no additional complaints GI Reports no additional complaints Reports no additional complaints Physical exam (Primary Care) Vital Signs: Last Vital Signs Temp 98.4 F 08/22/24 12:59 Pulse 62 08/22/24 12:59 Resp 20 08/22/24 12:59 BP 118/72 08/22/24 12:59 Pulse Ox 99 08/22/24 12:59 Oxygen Delivery Method Room Air 08/22/24 12:59 BMI result Body Mass Index 32.4 Tobacco/Smoking Status: Tobacco use Status Tobacco use date assessed 08/22/24 08/22/24 13:00 Patient Tobacco Use Status Former Tobacco user 08/22/24 13:00 e-Cigarette/Vaping Use Never Used 08/22/24 13:00 PHQ-9: PHQ-9 Score PHQ-9: Total score 1 08/22/24 13:14 Depression Screening Interpretation: Negative Thrive Assessment: Date of Thrive Assessment Date Thrive assessed 08/22/24 08/22/24 13:00 Currently or been in a relationship where the following occur: No concerns reported Const General: no acute distress HENMT Ears: hearing grossly normal bilaterally Throat: Yes posterior oropharynx normal Eyes General: appearance normal, both eyes and all related structures Neck Neck: Yes no lymphadenopathy and Yes supple Resp Effort & Inspection: decreased respiratory effort Auscultation: clear to auscultation bilaterally Cardio Rhythm: regular rhythm Heart sounds: S1 normal heart sound present and S2 normal heart sound present GI Inspection: Yes normal to inspection Palpation (GI): Soft to palpation Percussion: Yes normal to percussion Auscultation: normal bowel sounds Skin Other: Telangiectasia erythema and small nodules on both cheeks Extrem Other: There is a full range of motion of both knees no soft tissue swelling erythema or warmth General: Yes no clubbing, cyanosis or edema Coding Level of Care Code Est Pt Prev Care 40-64y(82292) Diagnoses Annual physical exam Z. Rosacea L71.9 Additional Codes MINA-7 Assessment Billing - MINA-7 Assessment Tool: MINA-7 Assessment 24853 ([id number]) PHQ-9 - 94937 - PHQ-9 Billing: Yes ([id number]) Assessment & Plan Assessment & Plan (1) Annual physical exam: Code(s): Z00. - Encounter for general adult medical examination without abnormal findings Category: Medical Plan: Well-balanced diet regular physical activity decreasing caloric intake weight loss discussed with the patient she will check with her insurance with GLP 1 agonist is covered and will start medication (2) Rosacea: Code(s): L71.9 - Rosacea, unspecified Category: Medical Plan: Patient will try azelaic acid gel twice a day and was advised to mineral sunscreen Orders: Orders Lipid Panel Today Z00.00 - Encounter for general adult medical examination without abnormal findings Complete Blood Count Auto Diff Today Z00.00 - Encounter for general adult medical examination without abnormal findings TSH reflex Free T4 Today Z00.00 - Encounter for general adult medical examin ation without abnormal findings Comprehensive [place]. Panel Fast Today Z00.00 - Encounter for general adult medical examination without abnormal findings UA w Microscopic Today Z00.00 - Encounter for general adult medical examination without abnormal findings Medications: New 2 epinephrine (EpiPen 2-Tyshawn) for 2 doses 0.3 mg (0.3 mL) IM Q10M PRN 2 ea 2RF anaphylaxis azelaic acid 15% 1 appl topical BID 50 grams 3RF
== END 2024-08-22 13:45 | disposition home or self-care (01) ==
LOC: HO.HMCC 12:53
PROVIDERS: PCP Internal Medicine; Visit Provider Internal Medicine
DX: Z00.00 Encounter for general adult medical examination without abnormal findings (principal); L71.9 Rosacea, unspecified

== ENCOUNTER → 2024-08-22 12:52 | Outpatient (BNVA) | payer OTHER, SELFPAY | PROVIDERS: PCP Internal Medicine; Visit Provider Internal Medicine | DX: Z00.00 Encounter for general adult medical examination without abnormal findings (principal); L71.9 Rosacea, unspecified | CPT/HCPCS: 96127 ==

== ENCOUNTER 2024-09-14 12:34 | Emergency (ER) | payer OTHER, SELFPAY ==
[2024-09-14 12:35] VITALS: BP 138/78; PULSE 64; RESP 16; TEMP 36.4; O2SAT 100; BMI 33.6
--- NOTE | 2024-09-14 12:36 | ED_ITS ---
HPI - General Adult General Chief complaint: Skin/Abscess/Foreign Body Stated complaint: ? tick on back, worsening facial rash Source: patient Mode of arrival: ambulatory Limitations: no limitations History of Present Illness ED Provider: lucas bagrer np HPI narrative: Patient is a 49-year-old female who presents to the emergency department for evaluation of a possible tick on her back, noted by daughter. Was working in the yard yesterday that abuts the bajwa. Also states a facial rash over the past few weeks, erythematous, flat, seen by PCP and thought to be rosacea, has been using a Azelaic acid, since yesterday she has noticed progression to the periorbital region and forehead which had not previously been present. She does admit to an allergy to tomato which has presented similarly in the past, at the time of its 1st onset she had questioned whether there may have been some cross contamination of food the brought this on, but rash has persisted. She has not Related Data Previous Rx's ?Medication ?Instructions ?Recorded azelaic acid 15 % topical gel 1 appl topical BID #50 grams 08/22/24 epinephrine 0.3 mg/0.3 mL 0.3 mg (0.3 mL) IM Q10M PRN 08/22/24 injection, auto-injector (EpiPen anaphylaxis #2 ea 2-Tyshawn) tirzepatide 2.5 mg/0.5 mL 2.5 mg (0.5 mL) subcut QWEEK #2 mL 08/22/24 subcutaneous pen injector (Mounjaro) Allergies Allergy/AdvReac Type Severity Reaction Status Date / Time bee pollen [BEE POLLEN] Allergy Intermediate RASH Verified 09/14/24 12:36 sulfur [From SULFUR-8] Allergy Intermediate FEVER, Unverified 08/22/24 13:05 RASH, fever,hallucinations, fever,hallucinations tomato Allergy Rash Verified 09/14/24 12:36 adhesive AdvReac rash Verified 08/22/24 13:05 Review of Systems Review of Systems: Yes all other systems are reviewed and are negative PMFSH Past Medical History Attestation statement: The following information was validated with the patient. Source: old records reviewed Medical History Annual physical exam Hematuria Atopic dermatitis Raynauds disease Shoulder pain, right GERD (gastroesophageal reflux disease) Surgical History H/O bilateral breast reduction surgery Family History Family History Father No problems noted. Mother Hypertension Social History Social History Household Members Other:: lives with a partner, daughter addict, Housing: House Housing Other:: Pt show not to answer Patient Tobacco Use Status: Former Tobacco user e-Cigarette/Vaping Use: Never Used service: No Current occupational status: employed Cognitive needs: No Hearing needs: No Vision needs: Yes Physical Exam ED Vital Signs: Vital Signs - 24 hr 09/14/24 12:35 Temperature 97.5 F Pulse Rate 64 Respiratory Rate 16 Blood Pressure 138/78 Pulse Oximetry 100 Oxygen Delivery Method Room Air BMI result Body Mass Index 33.6 Appearance: Alert.?Oriented to person, place and time. No acute distress.?Normal affect. Face: Diffuse Erythematous maculopapular rash CVS: Heart sounds normal. Normal heart rate and rhythm.? Pulses normal.?? Respiratory: No respiratory distress.? Lung sounds clear to auscultation bilaterally?? Back: Female deer tick imbedded into the right lower back soft tissue with surrounding erythema? Skin: Skin warm and dry.? Normal skin color.? See above Neuro: Moves all extremities spontaneously. Sensation intact bilaterally. Ambulates with normal steady gait. Medications Administered Discontinued Medications Generic Name Dose Route Start Last Admin Trade Name Freq PRN Reason Stop Dose Admin Doxycycline Monohydrate 200 mg 09/14/24 12:46 09/14/24 12:53 Doxycycline Monohydrate 100 Mg Capsule PO 09/14/24 12:47 200 mg ONCE ONE Administration Procedures Foreign Body Removal Time Out Performed: yes Site: right Description of foreign body: other (tick) Sedation/Analgesia: none Technique: removal with forceps Confirmed by:: direct visualization Complications: none Post-procedure exam: awake, alert Neurovascular: no change from pre-procedure Medical Decision Making Medical Decision Making MDM Narrative: Patient is a 49-year-old female presents emergency department for evaluation of 2 complaints as per HPI. Regarding the erythematous maculopapular rash to the face, she states that there has been progression since its onset 2 weeks ago, notably worse today spreading upwards to the periorbital region as well as the forehead. There was no signs of angioedema, no respiratory distress, does not appear consistent with anaphylaxis/angioedema. It is uncertain whether there may be an allergic component to this, I instructed her to trial the use of antihistamines over the next few days, facial cleansing with hypoallergenic wash, avoidance of steroids to prevent skin thinning side effects, outpatient follow-up with PCP/dermatology. No recent antibiotic usage to suggest SJS, TENS. Regarding the deer tick embedded in the soft tissue of the lower back this was able to be extricated, full body of the tick was visualized after extrication. Site cleansed with alcohol. Provided with a single prophylactic dose of doxycycline 200 mg in the emergency department, instructed on signs and symptoms of Lyme disease; flu-like illness/rash that would warrant treatment. All questions were answered. Stable for discharge home outpatient follow-up with primary care doctor. Differential Diagnosis Differential Diagnoses: The differential diagnosis associated with the presentation includes (See narrative above) External Record Review External record reviewed: Outpatient record Prescription Management I considered prescription management with: Antibiotic (Single prophylactic dose as per narrative above) Discharge Plan Discharge Clinical Impression: Tick bite, Facial dermatitis Patient Disposition: Home, Self-Care Instructions: Tick Bite (ED), Dermatitis (ED) Additional Instructions: You were evaluated in the emergency department for a tick that was embedded into your right lower back. This was removed while in the emergency department. You have been given a single dose of doxycycline 200 mg while in the emergency department. Please monitor for signs and symptoms that may be associated with Lyme disease transmission this includes flu-like illness, as well as monitoring for a rash as we discussed. Should do develop these symptoms or notices rash, you may speak with your primary care doctor in regards to treatment for Lyme disease, as mentioned, if tested to early after exposure you may receive a false negative, if you experience symptoms he should be treated regardless. Regarding the rash that is noted to the facial region. Given its progression, I recommend using Zyrtec or Claritin daily over the next few days, warm water, hypoallergenic patient cleanser. As we discussed, steroids are wanted to be avoided with application to the face as this can ultimately thin the skin. Follow-up with your primary care doctor further evaluation/management Prescriptions: No Action Mounjaro 2.5 mg/0.5 mL pen injector 2.5 mg subcut QWEEK Qty: 2 2RF azelaic acid 15 % gel 1 appl topical BID Qty: 50 3RF epinephrine [EpiPen 2-Tyshawn] 0.3 mg/0.3 mL auto-injector 0.3 mg IM Q10M PRN (Reason: anaphylaxis) Qty: 2 2RF Rx Instructions: for 2 doses Referrals: Yulia Lambert MD [Primary Care Provider] - Interventions: ED Discharge Assessment Last Done: 09/14/24 12:58 Print Language: Arabic
[2024-09-14] MEDS: Doxycycline Monohydrate 100 MG CAPSULE 200 MG PO (12:53)
[2024-09-14 12:58] VITALS: BP 138/78; PULSE 64; RESP 16; TEMP 36.4; O2SAT 100
== END 2024-09-14 13:02 | disposition home or self-care (01) ==
PROVIDERS: Emergency Provider Emergency Medicine Emergency Medical Services; PCP Internal Medicine
DX: R21 Rash and other nonspecific skin eruption (principal); L30.9 Dermatitis, unspecified; T14.8XXA Other injury of unspecified body region, initial encounter; W57.XXXA Bitten or stung by nonvenomous insect and other nonvenomous arthropods, initial encounter; Y93.9 Activity, unspecified; Y92.9 Unspecified place or not applicable; Y99.9 Unspecified external cause status
CPT/HCPCS: 99282; 99283; 99284

== ENCOUNTER 2024-11-25 13:01 | Outpatient (AMB) | payer OTHER, SELFPAY ==
--- NOTE | 2024-11-25 13:04 | MHC.PC.OV ---
Vital Signs 11/25/24 13:10 Height 5 ft 1 in Weight 178 lb BMI 33.6 BP 122/82 Blood Pressure Location Rt brachial Position Sitting Respiration 18 Pulse 57 Pulse Source Pulse Oximeter Temp 98.0 F Temp Source Oral Pulse Oximetry (%) 99 Oxygen Delivery Method Room Air Intake Visit Reasons: 3 months f/up Intake Note: Pt is here today for 3 months follow up visit. Allergies bee pollen (BEE POLLEN) Allergy (Intermediate, Verified 11/25/24 13:12) RASH sulfur (From SULFUR-8) Allergy (Intermediate, Unverified 11/25/24 13:12) FEVER, RASH, fever,hallucinations, fever,hallucinations tomato Allergy (Verified 11/25/24 13:12) Rash adhesive Adverse Reaction (Verified 11/25/24 13:12) rash Medication List - Last Reconciled 11/25/24 by Yulia Lambert MD azelaic acid 15% 1 appl topical BID epinephrine (EpiPen 2-Tyshawn) 0.3 mg (0.3 mL) IM Q10M PRN Tobacco use date assessed: 11/25/24 Dental Screening Dental Screen Date: 08/22/24 HPI 3 months f/up HPI Details Patient presents for the follow-up. She has been decreasing caloric intake increasing physical activity for over 6 months trying to lose weight. Patient's insurance did not cover [employer]. Patient follows weight watchers weight loss program. She complains of a muscle spasm of her left eye lids on and off for few weeks. Patient feels that her balance is off when starting to walk. She denies any weakness or numbness in extremities headaches diplopia nausea vomiting change in bowel or bladder function. [facility] Medical History Annual physical exam Hematuria Atopic dermatitis Raynauds disease Shoulder pain, right GERD (gastroesophageal reflux disease) Surgical History H/O bilateral breast reduction surgery Family History Father No problems noted. Mother Hypertension Social History Household Members Other:: lives with a partner, daughter addict, Housing: House Housing Other:: Pt show not to answer Patient Tobacco Use Status: Former Tobacco user e-Cigarette/Vaping Use: Never Used service: No Current occupational status: employed Cognitive needs: No Hearing needs: No Vision needs: Yes Questionnaire Thrive Questionnaire Date Thrive assessed: 08/19/24 I am a: Patient What is your living situation today?: I have a steady place to live Within the past 12 months, did the food you bought not last and you didn't have the money to get more?: Never true Within the past 12 months, did you worry whether your food would run out before you got money to buy more?: Never true Do you have trouble paying for medicines?: No Do you have trouble getting transportation to medical appointments?: No Do you have trouble paying your heating and electricity bill?: No Do you have trouble taking care of your child, family member or friend?: No Do you have trouble with day-to-day activities such as bathing, preparing meals, shopping, managing finances, etc.?: No Are you currently unemployed and looking for a job?: No Are you interested in more education?: No Please select the resources that you would like help with: None Currently or been in a relationship where the following occur: No concerns reported THRIVE Score: 0 MINA-7 AMB Questionnaire MINA-7 Date MINA - 7 assessed: 08/22/24 Source: Developed by Drs. Jake Montilla, Danica Webster, Larry Rivas and colleagues, with an educational naveed from [employer]. Review of Systems Const All systems reviewed & are unremarkable except as noted in HPI and below ENT Reports no additional complaints Card Reports no additional complaints Resp Reports no additional complaints GI Reports no additional complaints Reports no additional complaints Physical exam (Primary Care) Vital Signs: Last Vital Signs Temp 98.0 F 11/25/24 13:10 Pulse 57 11/25/24 13:10 Resp 18 11/25/24 13:10 BP 122/82 11/25/24 13:10 Pulse Ox 99 11/25/24 13:10 Oxygen Delivery Method Room Air 11/25/24 13:10 BMI result Body Mass Index 33.6 Tobacco/Smoking Status: Tobacco use Status Tobacco use date assessed 11/25/24 11/25/24 13:15 Patient Tobacco Use Status Former Tobacco user 11/25/24 13:07 e-Cigarette/Vaping Use Never Used 11/25/24 13:07 Thrive Assessment: Date of Thrive Assessment Date Thrive assessed 08/19/24 11/25/24 13:07 Currently or been in a relationship where the following occur: No concerns reported Const General: no acute distress HENMT Head: Yes normal to inspection Ears: hearing grossly normal bilaterally Face and sinus: Yes normal facial exam Eyes Other: Right lower lid erythema and swelling Conjunctivae: conjunctivae normal Pupils: Equal, round and reactive pupils present EOM: EOMs intact bilaterally Resp Effort & Inspection: normal respiratory effort Auscultation: clear to auscultation bilaterally Cardio Rhythm: regular rhythm Heart sounds: S1 normal heart sound present and S2 normal heart sound present Neuro Cranial nerves: Yes CN's II-XII intact bilaterally and Yes Equal, round and reactive pupils present Gait exam (Neuro): Normal gait present Motor exam (neuro): 5/5 motor strength present throughout Coordination: [id number] test normal Romberg Test: Negative Extrem General: Yes no clubbing, cyanosis or edema Coding Level of Care Code Est Pt Level 3 (83592) Diagnoses Blepharitis H01.009 Overweight E66.3 Assessment & Plan Assessment & Plan (1) Blepharitis: Code(s): H01.009 - Unspecified blepharitis unspecified eye, unspecified eyelid Category: Medical Plan: Erythromycin ophthalmic ointment as prescribed and supportive care discussed with the patient (2) Overweight: Code(s): E66.3 - Overweight Category: Medical Plan: Continue weight watchers program decreasing caloric intake increasing physical activity discussed with the patient. She will check with her insurance coverage for GLP 1 agonist Orders: Orders Complete Blood Count Auto Diff Today Z00.00 - Encounter for general adult medical examination without abnormal findings TSH reflex Free T4 Today Z00.00 - Encounter for general adult medical examination without abnormal findings Vitamin D 25-OH Total Today Z00.00 - Encounter for general adult medical examination without abnormal findings Comprehensive Lytle. Panel Fast Today Z00.00 - Encounter for general adult medical examination without abnormal findings Lipid Panel Today Z00.00 - Encounter for general adult medical examination without abnormal findings Magnesium Today Z00.00 - Encounter for general adult medical examination without abnormal findings Medications: New erythromycin 0.5 inches ophthalmic (eye) BID 3.5 grams 0RF
[2024-11-25 13:10] VITALS: BP 122/82; PULSE 57; RESP 18; TEMP 36.7; O2SAT 99; BMI 33.6
== END 2024-11-25 14:45 | disposition home or self-care (01) ==
LOC: HO.HMCC 13:02
PROVIDERS: PCP Internal Medicine; Visit Provider Internal Medicine
DX: H01.009 Unspecified blepharitis unspecified eye, unspecified eyelid (principal); E66.3 Overweight

== ENCOUNTER 2024-12-05 07:42 | Outpatient (REF) | payer OTHER, SELFPAY ==
[2024-12-05 10:22] LABS: MANUAL DIFF FLAG NO
[2024-12-05 10:45] LABS: Hematocrit 40.5 % (37.0-47.0); Hemoglobin 13.4 g/dl (12.0-16.0); Imm Gran Abs Auto 0.07 X10*3/uL (0.00-0.03); Imm Gran Pct Auto 1.2 % (0.0-0.4); Lymphocytes Absolute Auto 1.3 X10*3/uL (1.2-4.9); Mean Corpuscular HGB Conc 33.1 g/dl (31.0-35.0); Mean Corpuscular Hemoglobin 31.5 pg (27.0-33.0); Mean Corpuscular Volume 95.3 fL (80.0-98.0); NRBC Abs Auto 0.000 X10*3/uL (0.0-0.012); NRBC Pct Auto 0.0 /100WBC (0.0-0.2); Platelet Count 237 X10*3/uL (160-400); Red Blood Count 4.25 X10*6/uL (4.20-5.50); White Blood Count 6.1 X10*3/uL (4.8-10.8)
[2024-12-05 11:09] LABS: Alanine Aminotransferase 19 U/L (0-31); Albumin Level 4.3 g/dL (3.5-5.0); Alkaline Phosphatase 53 U/L (39-117); Anion Gap 12 (12-20); Aspartate Amino Transferase 21 U/L (5-31); Blood Urea Nitrogen 13 mg/dL (9-16); Calcium 9.4 mg/dL (8.4-10.2); Carbon Dioxide 26 mmol/L (22-29); Chloride 107 mmol/L (96-108); Cholesterol 183 mg/dL (<200); Estimated Glomerular Filt Rate > 60; HDL Cholesterol 49 mg/dL (>40); Magnesium 2.3 mg/dL (1.6-2.6); Potassium 4.5 mmol/L (3.3-5.1); Sodium 140 mmol/L (135-145); Total Protein 6.7 g/dL (6.5-8.0); Triglycerides 60 mg/dL (<150)
[2024-12-08 21:13] LABS: Lyme Abs Screen <0.90 index
== END 2024-12-05 07:43 | disposition home or self-care (01) ==
LOC: HO.HMGCLDS 07:42
PROVIDERS: PCP Internal Medicine; Visit Provider Internal Medicine
DX: Z00.00 Encounter for general adult medical examination without abnormal findings (principal); T14.8XXA Other injury of unspecified body region, initial encounter
CPT/HCPCS: 36415; 80053; 80061; 82306; 83735; 84443; 85025; 86617; 86618

== ENCOUNTER 2024-12-22 16:32 | Outpatient (AMB) | payer OTHER, SELFPAY ==
--- OUTSIDE RECORDS SUMMARY | 2024-12-22 16:34 | XMS_ITS | Encounter Summary ---
Author Organization [facility] Address [address] [place] [address] Phone Care Team Providers Care Grader Marker Name Role Phone Bj Skinner MD Unavailable Pino Obrien MD Unavailable Yulia Lambert MD Primary Care Provider [phone] Encounter Details Date Type Department Care Team (Late st Contact Info) Description 11/11/2021 Procedure Pass [facility] Endoscopy Admitting Dept Virtual Department [address] [place] [phone] Social History Tobacco Use Types Packs/Day Years Used Date Smoking Tobacco: Former Cigarettes 1 10 - 2006 Smokeless Tobacco: Never Alcohol Use Standard Drinks/Week Comments Yes 0 (1 standard drink = 0.6 oz pur e alcohol) 2-3 drinks, 3 x month Comments Unknown Sex and Gender Information Value Date Recorded Sex Assigned at Not on file Legal Sex Female 9:28 PM EDT Gender Identity Not on file Sexual Orientation Not on file documented as of this encounter Plan of Treatment Not on file documented as of this encounter Visit Diagnoses Not on filedocumented in this encounter Additional Health Concerns Assessment Noted Time PHQ-2 Depression Total Score: 0 06/26/19 20 4:10 PM EST documented as of this encounter Care Teams Grader Marker Relationship Specialty Start Date End Date Yulia Lambert MD [address] [facility] [place] [address] PCP - General Internal Medicine 11/08/21 Bj Skinner MD [address] [place] [address] [address] [place] [phone] Obstetrics and Gynecology 06/26/19 Pino Obrien MD [address] [place] [address] [id number] [email or web address] Gastroenterology 09/10/19 documented as of this encounter Additional Source Comments The information contained in this document represents components of the legal health record. It is not the complete legal health record.[facility]
[2024-12-22 16:37] VITALS: BP 134/84; PULSE 62; TEMP 36.7; O2SAT 100; BMI 33.7
--- NOTE | 2024-12-22 16:37 | AM.OFFWIN_ITS ---
Intake Vital Signs 12/22/24 16:37 Height 5 ft 1 in Weight 178 lb 2 oz BMI 33.7 BP 134/84 Blood Pressure Location Rt brachial Position Sitting Pulse 62 Pulse Source Pulse Oximeter Temp 98.1 F Temp Source Oral Pulse Oximetry (%) 100 Oxygen Delivery Method Room Air Intake Visit Reasons: EP infection on arm, cat scratch Patient Tobacco Use Status: Former Tobacco user Is last menstrual period known: Yes Last menstrual period: 12/21/24 Post menopausal: No Patient : No Allergies bee pollen (BEE POLLEN) Allergy (Intermediate, Verified 12/22/24 16:41) RASH sulfur (From SULFUR-8) Allergy (Intermediate, Verified 12/22/24 16:41) FEVER, RASH, fever,hallucinations, fever,hallucinations tomato Allergy (Verified 12/22/24 16:41) Rash adhesive Adverse Reaction (Verified 12/22/24 16:41) rash Do you need a note to return to daycare/school/sports/work: Yes HPI HPI Comments History of Present Illness Details History - The patient is a 49-year-old female pr esenting with a cat bite yesterday with potential infection. - The incident occurred when the patient intervened in a cat fight, resulting in a scratch on the arm. - The 2 cats involved are hers and she r eports they are both up to date on all vaccinations, including rabies. - The patient reports no fever and the t etanus vaccination is current, last administered in 2020. - Mild redness and warmth were noted at the site of the bite on her right forearm Physical Exam General: Cooperative, healthy appearing, comfortable, no acute distress and well developed Orientation: Patient oriented x3 Limitations: No limitations Head: Normal to inspection Ears: Hearing grossly normal bilaterally Nose: Normal External nose present Face and sinus: Normal facial exam Mouth: normal, moist oral mucosa Eyes: Appearance normal, both eyes and all related structures Neck: Normal visual inspection and Yes full ROM Respiratory: Normal respiratory effort and able to speak in complete sentences. Skin: 3 small lacerations with surrounding 2cm round area of erythema, warmth and clear drainage on volar aspect of right arm. Neuro: Patient oriented x3, gait normal Extremities: moving all extremities normally [facility] Medical History (Updated 12/22/24 @ 16:52 by Hiral Duvall PA-C) Tick bite Annual physical exam Hematuria Atopic dermatitis Raynauds disease Shoulder pain, right GERD (gastroesophageal reflux disease) Surgical History H/O bilateral breast reduction surgery Family History Father No problems noted. Mother Hypertension Social History Household Members Other:: lives with a partner, daughter addict, Housing: House Housing Other:: Pt show not to answer Patient Tobacco Use Status: Former Tobacco user e-Cigarette/Vaping Use: Never Used Patient : No service: No Current occupational status: employed Cognitive needs: No Hearing needs: No Vision needs: Yes Female Reproductive History Menstrual Date of last menstrual period: 12/21/24 Review of Systems Const All systems reviewed & are unremarkable except as noted in HPI and below Physical Exam Vital Signs: Last Vital Signs Temp 98.1 F 12/22/24 16:37 Pulse 62 12/22/24 16:37 BP 134/84 12/22/24 16:37 Pulse Ox 100 12/22/24 16:37 Oxygen Delivery Method Room Air 12/22/24 16:37 BMI result Body Mass Index 33.7 Assessment & Plan Assessment & Plan (1) Cat bite of forearm: Code(s): S51.859A - Open bite of unspecified forearm, initial encounter; W55.01XA - Bitten by cat, initial encounter Qualifiers: Encounter type: initial encounter Laterality: right Qualified Code(s): S51.851A - Open bite of right forearm, initial encounter; W55.01XA - Bitten by cat, initial encounter Plan: Plan Patient was informed and verbally consented to the use of an ambient scribe for clinic note documentation during this visit 1. Cat Bite With Potential Infection - Prescribed Augmentin to prevent infection, with instructions to take it with food to minimize gastrointestinal discomfort. - Advised to monitor the wound for signs of worsening infection and to report back if symptoms do not improve after a few days. - Recommended wound care includes cleaning with soap and water, covering with a Band-Aid, and soaking in Epsom salts. Medications: New amoxicillin-pot clavulanate 875-125 mg 1 tab PO Q12H 14 tabs 0RF Coding Level of Care Code Est Pt Level 3 (69169) Diagnoses Cat bite of right forearm, initial encounter S51.851A; W55.01XA Encounter type: initial encounter Laterality: right
== END 2024-12-22 16:55 | disposition home or self-care (01) ==
PROVIDERS: PCP Internal Medicine; Visit Provider Physician Assistant
DX: S51.851A Open bite of right forearm, initial encounter (principal); W55.01XA Bitten by cat, initial encounter

== ENCOUNTER 2025-04-20 08:10 | Outpatient (AMB) | payer OTHER, SELFPAY ==
[2025-04-20 08:11] VITALS: BP 132/78; PULSE 84; TEMP 37; O2SAT 98; BMI 34.0
--- NOTE | 2025-04-20 08:11 | MHC.OFFWIV ---
Intake Vital Signs 04/20/25 08:11 Height 5 ft 1 in Weight 180 lb BMI 34.0 BP 132/78 Blood Pressure Location Lt brachial Position Sitting Pulse 84 Pulse Source Pulse Oximeter Temp 98.6 F Temp Source Oral Pulse Oximetry (%) 98 Oxygen Delivery Method Room Air Intake Visit Reasons: EP-sore throat, cough Intake Note: Patient presents c/o sore throat, neck pain x3 days. Patient Tobacco Use Status: Former Tobacco user Allergies bee pollen (BEE POLLEN) Allergy (Intermediate, Verified 04/20/25 08:16) RASH shellfish derived (shellfish) Allergy (Intermediate, Verified 04/20/25 08:16) Hallucinations Sulfa (Sulfonamide Antibiotics) Allergy (Intermediate, Verified 04/20/25 08:16) Hallucinations sulfur (From SULFUR-8) Allergy (Intermediate, Verified 04/20/25 08:16) FEVER, RASH, fever,hallucinations, fever,hallucinations tomato Allergy (Verified 04/20/25 08:16) Rash adhesive Adverse Reaction (Verified 04/20/25 08:16) rash HPI HPI Comments History of Present Illness Details History - The patient is a 50-year-old individual presenting with a sore throat and nasal congestion. - The sore throat began three days ago and has worsened, causing significant discomfort when turning the head. - The patient reports nasal congestion accompanied by bloody noses and postnasal drip. - She has been having pain in the ears. - The patient experiences headaches, particularly when the weather changes, and has been using Zyrtec and Benadryl for allergy management, though these are currently ineffective. - She has no fever or chills. - She denies CP, SOB, abd pain, n/v/d, sick contacts, or recent travel. Physical Exam General: Cooperative, healthy appearing, comfortable and no acute distress Orientation/consciousness: Patient oriented x3 Limitations: Neck pain with movement, especially when turning head Head: Normal to inspection Ears: Fluid in ear noted, hearing grossly normal bilaterally, external ears normal and TM's normal bilaterally Nose: Normal external nose present, bloody nares present, and no nasal discharge present. Face and sinus: Sinuses nontender to palpation. Mouth: Normal oral and palatal mucosa present and moist mucous membranes noted. Throat: Tonsils normal. Uvula is midline. Posterior oropharynx with erythema and no exudates. Eyes: Appearance normal, both eyes and all related structures Neck: Normal visual inspection, full ROM. Lymphadenopathy noted. Respiratory: Clear to auscultation bilaterally. Normal respiratory effort, able to speak in complete sentences. No respiratory distress, not tachypneic, no tripod positioning and no use of accessory muscles. Cardiovascular: Regular rate and rhythm. Normal S1 and S2 Skin: No rashes or lesions noted Patient was informed and verbally consented to the use of an ambient scribe for clinic note documentation during this visit [facility] Medical History (Updated 12/22/24 @ 16:52 by Hiral Duvall PA-C) Tick bite Annual physical exam Hematuria Atopic dermatitis Raynauds disease Shoulder pain, right GERD (gastroesophageal reflux disease) Surgical History H/O bilateral breast reduction surgery Family History Father No problems noted. Mother Hypertension Social History Household Members Other:: lives with a partner, daughter addict, Housing: House Housing Other:: Pt show not to answer Patient Tobacco Use Status: Former Tobacco user e-Cigarette/Vaping Use: Never Used service: No Current occupational status: employed Cognitive needs: No Hearing needs: No Vision needs: Yes Review of Systems Const All systems reviewed & are unremarkable except as noted in HPI and below Physical Exam Vital Signs: Last Vital Signs Temp 98.6 F 04/20/25 08:11 Pulse 84 04/20/25 08:11 BP 132/78 04/20/25 08:11 Pulse Ox 98 04/20/25 08:11 Oxygen Delivery Method Room Air 04/20/25 08:11 BMI result Body Mass Index 34.0 Results AMB Rapid Strep AMB Rapid Strep Negative Last Edit by Hillary Lee CMA on 04/20/25 08:49 Results Reviewed Results Reviewed: Laboratory Last Values Strep Scn Rapid Clinic Negative 04/20/25 08:22 Assessment & Plan Assessment & Plan (1) Sore throat: Code(s): J02.9 - Acute pharyngitis, unspecified (2) Congestion of nasal sinus: Code(s): R09.81 - Nasal congestion Plan Most likely URI vs covid vs flu vs RSV vs viral ilness rapid was negative plan - Initiate antibiotics to cover potential bacterial causes such as Streptococcus and Staphylococcus. - Recommend alternating Tylenol and Motrin for pain management. - Perform flu, COVID-19, and RSV swab to rule out viral infections. - Continue with Cetirizine and Benadryl for allergy management. - Avoid Flonase due to concerns about exacerbating bloody noses. - follow up with PCP Orders: Orders AMB Rapid Strep Screen Today Z13.9 - Encounter for screening, unspecified SARS-CoV2/FLU/RSV Today R09.89 - Other specified symptoms and signs involving the circulatory and respiratory systems Medications: New amoxicillin-pot clavulanate 875-125 mg 1 tab PO Q12H 14 tabs 0RF Coding Level of Care Code Est Pt Level 3 (26150) Diagnoses Sore throat J02.9 Congestion of nasal sinus R09.81
--- OUTSIDE RECORDS SUMMARY | 2025-04-20 08:19 | XMS_ITS | Encounter Summary ---
Author Organization [facility] Address [address] [facility] [address] [place] [id number] Phone Care Team Providers Care Assurance Sourcing Manager Name Role Phone Bj Skinner MD Unavailable Pino Obrien MD Unavailable [phone] Yulia Lambert MD Primary Care Provider Encounter Details Date Type Department Care Team (Late st Contact Info) Description 11/11/2021 Procedure Pass [facility] Endoscopy Admitting Dept Virtual Department [address] [place] [address] Social History Tobacco Use Types Packs/Day Years Used Date Smoking Tobacco: Former Cigarettes 1 10 1 - 2006 Smokeless Tobacco: Never Alcohol Use [...] documented as of this encounter Care Teams Assurance Sourcing Manager Relationship Specialty Start Date End Date Yulia Lambert MD [facility] [place] [address] PCP - General Internal Medicine 11/08/21 Bj Skinner MD [address] [place] [address] [address] [place] [phone] Obstetrics and Gynecology 06/26/19 Pino Obrien MD [address] [place] [address] [email or web address] Gastroenterology 09/10/19 documented as of this encounter Additional Source Comments The information contained in this document represents components of the legal health record. It is not the complete legal health record.[facility]
--- OUTSIDE RECORDS SUMMARY | 2025-04-20 08:19 | XMS_ITS | Clinical Summary ---
Author Organization Formerly [facility] Address [address] [place] [phone] Phone Care Team Providers Care Credit Union Manager Name Role Phone Bj Skinner MD Unavailable [phone] Pino Swann MD Unavailable [phone] Yulia Lambert MD Primary Care Provider [phone] Allergies Active Allergy Reactions Criticality Noted Date Comments Honey Other (See Comments) Medium 04/09/2017 Mouth irritation Other Rash Low 06/26/2019 Balsumaprou , tomatoes Sulfa (Sulfonamide Antibiotics) Other (See Comments),Fever Medium 02/29/2012 hallucinate Venom-Honey Bee Anaphylaxis High 04/12/2018 Medications ibuprofen (ADVIL,MOTRIN) 200 MG tablet Take 600 mg by mouth daily as needed. Active omeprazole (PRILOSEC) 10 MG capsuleIndicat ions:gastroeso phageal reflux disease 20 mg daily. Indications: gastroesophageal reflux disease Active Active Problems Problem Noted Date Diagnosed Date GERD (gastroesophageal reflux disease) 0 Raynaud's disease 06/29/2019 Immunizations Immunization Administration Dates Next Due COVID-19 (Pre-03/19) Moderna Vaccine, mRNA, PF 0 09/08/2020 Influenza Quadrivalent Preservative Free IM 09/2020 Tdap 02/23/2021 Family History Medical History Relation Comments Asthma Brother Obesity Brother Sleep apnea Brother Skin cancer Father Heart attack Maternal Grandfather Prostate cancer Maternal Grandfather Diabetes Maternal Grandmother Skin cancer Maternal Grandmother Stroke Maternal Grandmother Autoimmune disease Mother Breast cancer Paternal Aunt Bone cancer Paternal Grandfather Prostate cancer Paternal Grandfather Colon cancer Paternal Grandmother Relation Status Comments Brother Alive Daughter 1 Alive Daughter 2 Alive Father Alive Maternal Grandfather Maternal Grandmother Alive Mother Alive Paternal Aunt Alive Paternal Grandfather Alive Paternal Grandmother Alive Social History Tobacco Use Types Packs/Day Years Used Date Smoking Tobacco: Former Cigarettes 1 10 1 997 - 2006 Smokeless Tobacco: Never Alcohol Use Standard Drinks/Week Comments Yes 0 (1 standard drink = 0.6 oz pur e alcohol) 2-3 drinks, 3 x month Education Answer Date Recorded Are you interested in more education? Not on momo e 09/22/2022 Are you concerned about learning? Not on file 09/22/2022 No 09/22/2022 No 09/22/2022 Digital Access Answer Date Recorded No 10/23/2022 No 10/23/2022 Reliable internet access at home? Not on file 10/23/2022 Device with a working camera? Not on file Comments Unknown Sex and Gender Information Value Date Recorded Sex Assigned at Not on file Legal Sex Female 9:28 PM EDT Gender Identity Not on file Sexual Orientation Not on file Last Filed Vital Signs Vital Sign Reading Time Taken Comments Blood Pressure 115/70 11/11/2021 11:13 AM EDT Pulse 72 11/11/2021 10:57 AM EDT Temperature 35.9 C (96.6 F) 11/11/2021 10:57 AM EDT Respiratory Rate 16 11/11/2021 10:57 AM EDT Oxygen Saturation 100% 11/11/2021 11:15 AM EDT Inhaled Oxygen Concentration - - Weight 77.1 kg (170 lb) 11/10/2021 2:14 PM EDT Height 157.5 cm (5' 2 ) 11/10/2021 2:14 PM EDT Body Mass Index 31.09 11/10/2021 2:14 PM EDT Plan of Treatment Health Maintenance Due Date Last Done Comments SMOKING Hx and SMOKELESS TOBACCO SCREENING 02/23/1988 HEPATITIS C SCREENING 1993 HIV ONE-TIME SCREENING (18-6 5 YEARS) 1993 MAMMOGRAM 2015 COLOGUARD 02/23/2020 FIT TEST 02/23/2020 FOBT 02/23/2020 SIGMOIDOSCOPY 02/23/2020 VIRTUAL COLONOSCOPY 02/23/2020 DEPRESSION SCREENING 06/26/2020 06/26/2019 PAP SMEAR 10/03/2020 10/04/2015, 10/04/2015 LIPID PANEL 12/21/2021 12/21/2016, 12/21/2016, 12/21/2016 INFLUENZA VACCINE (#1) 2024 04/01/2021 COVID-19 VACCINE (4 - 2024-2 6 season) 2025 04/10/2021, 10/06/2020, 09/08/2020 PNEUMOCOCCAL VACCINES (50+ years) (1 of 1 - PCV) 2025 ZOSTER VACCINES (1 of 2) 2025 Adult Td,Tdap Booster 02/23/2031 02/23/2021 , 12/31/2012, 09/26/2003 COLONOSCOPY 11/12/2031 11/11/2021 COLORECTAL CANCER SCREENING 11/12/2031 RSV VACCINE (1 - 1-dose 75+ series) 2050 HEPATITIS A VACCINES Aged Out No long er eligible based on patient's age to complete this topic HIB VACCINES Aged Out No longer eligi ble based on patient's age to complete this topic MENINGOCOCCAL VACCINES (ACWY) Aged Out No longer eligible based on patient's age to complete this topic MENINGOCOCCAL VACCINES (B) Aged Out N o longer eligible based on patient's age to complete this topic Medical Devices Not on file Procedures Procedure Name Priority Date/Time Associated Diagnosis Comments ENDOSCOPY, COLON 11/11/2021 10:2 5 AM EDT OUTSIDE HDL Routine 12/21/2016 HM PAP SMEAR FOR RESULT ENTRY ONLY Routine 10/04/2015 from Last 3 Months or Most Recently Relevant to Health Maintenance Results * ENDOSCOPY, COLON (11/11/2021 10:25 AM EDT) Narrative Transcriptions Pino Swann MD - 11/11/2021 10:25 AM EDT Patient Name: Fay Bejarano Attending MD:: PINO SWANN MD Procedure Date: 11/11/2021 10:25 AM Date of : 1975 Age: 46 Admit Type: Outpatient Gender: Female Room: [place] [address] Referring MD: Yulia Lambert MD Exam Type: Colonoscopy Indications: Screening for colorectal malignant neoplasm, Thisis the patient's first colonoscopy Medications: Monitored Anesthesia Care Procedure: Informed consent was obtained from the patientafter discussion of the indications, limitations, alternatives, benefits, and risks of the procedure. Risks specifically discussed include but are not limited to medication reactions, missed lesions, bleeding, perforation, or the need for emergent surgery. Throughout the procedure, the patient's blood pressure, pulse, end-tidal CO2, and oxygensaturations were monitored continuously. The Olympus adult variable colonoscope [id number] #6 was introduced through the anus and advanced to the terminal ileum. The colonoscopy was performedwithout difficulty. The patient tolerated the procedurewell. The quality of the bowel preparation was good. Anatomical landmarks were photographed. Complications: No immediate complications. Estimated blood loss:None. Findings: The perianal and digital rectal examinations were normal. The rectum, recto-sigmoid colon, sigmoid colon, descending colon, splenic flexure, transversecolon, hepatic flexure, ascending colon, cecum,appendiceal orifice, ileocecal valve, ileum, rectum (on retroflexion) and ascending colon (on retroflexion) appeared normal. Impression: - The rectum, sigmoid colon, descending colon,splenic flexure, transverse colon, hepatic flexure,ascending colon, cecum, rectum (on retroflexion), ascending colon (on retroflexion), ileocecal valve, recto-sigmoid colon, terminal ileum and appendiceal orifice are normal. - No specimens collected. Recommendation: - Discharge patient to home. - Resume previous diet. - Continue present medications. - Repeat colonoscopy in 10 years for screening purposes. - Your colonoscopy was normal with no polyps or colitis. PINO SWANN MD 11/11/2021 11:04:06 AM This report has been signed electronically. Number of Addenda: 0 Note Initiated On: 11/11/2021 10:25 AM Procedure Code(s): --- Professional --- 48727, Colonoscopy, flexible; diagnostic, including collection of specimen(s) by brushing or washing, when performed (separateprocedure) --- Technical --- 36202, Colonoscopy, flexible; diagnostic, including collection of specimen(s) by brushing or washing, when performed (separateprocedure) Diagnosis Code(s): --- Professional --- Z12.11, Encounter for screening for malignantneoplasm of colon --- Technical --- Z12.11, Encounter for screening for malignantneoplasm of colon CPT copyright 2020 [employer]. All rights reserved. The codes documented in this report are preliminary and upon computer language coder reviewmay be revised to meet current compliance requirements. Procedure Date: 11/11/2021 10:25:[address] [place] [id number] Yulia Lambert MD GI PROCEDURE ORDERABLES Final Result * Outside HDL (12/21/2016) HDL - External 54 40 - 80 mg/dL Historical Provider LAB BLOOD ORDERABLES Aaliyah l Result * HM PAP SMEAR FOR RESULT ENTRY ONLY (10/04/2015) Pap smear NILM, HPV negative Historical Devi [facility] Final Result from Last 3 Months or Most Recently Relevant to Health Maintenance Insurance [employer] [place] [address] [place] [address] [employer] [place] [address] [place] [address] ACO Care Teams Credit Union Manager Relationship Specialty Start Date End Date Yulia Lambert MD [address] [place] [address] PCP - General Internal Medicine 11/08/21 Bj Skinner MD [address] [place] [address] [address] [place] [address] Obstetrics and Gynecology 06/26/19 Pino Swann MD [address] [place] [phone] [email or web address] Gastroenterology 09/10/19 Additional Source Comments The information contained in this document represents components of the legal health record. It is not the complete legal health record.Formerly [facility]
--- OUTSIDE RECORDS SUMMARY | 2025-04-20 08:19 | XMS_ITS | Encounter Summary ---
Author Organization Located Within [facility] Address [address] [place] [address] Phone Care Team Providers Care Director Semiconductor Name Role Phone Gilberto Radha Cate FOX Unavailable ShannonCatina Fay DAMPER MAKER Unavailable Hammad Garcia MD Unavailable Amanda Knight Unavailable [phone] Amanda Knight Primary Care Provider Jake Sargent MD Unavailable Bj Skinner MD Unavailable Jewell Mcdonald [facility] Primary Care Provider Pino Obrien MD Unavailable Tulio Nichole MD Unavailable Jewell Mcdonald [facility] Primary Care Provider Yulia Lambert MD Primary Care Provider Encounter Details Date Type Department Care Team (Late st Contact Info) Description 03/22/2018 Procedure Pass [facility] Endoscopy Admitting Dept Virtual Department [address] [place] [address] Social History Tobacco Use Types Packs/Day Years Used Date Smoking Tobacco: Former Cigarettes 1 10 1 7 - 2006 Smokeless Tobacco: Never Alcohol Use Standard Drinks/Week Comments Yes 0 (1 standard drink = 0.6 oz pur e alcohol) once a month Comments Unknown Sex and Gender Information Value Date Recorded Sex Assigned at Not on file Legal Sex Female 9:28 PM EDT Gender Identity Not on file Sexual Orientation Not on file documented as of this encounter Plan of Treatment Not on file documented as of this encounter Visit Diagnoses Not on filedocumented in this encounter Care Teams Director Semiconductor Relationship Specialty Start Date End Date Amanda Knight PA [address] [place] [address] PCP - General 03/15/17 07/28/19 Jewell Mcdonald CNP [address] [place] [address] [email or web address] PCP - General Internal Medicine 07/29/19 02/16/21 Jewell Mcdonald CNP [address] [place] [address] [email or web address] PCP - General Internal Medicine 02/17/21 11/07/21 Yulia Lambert MD [address] [place] [address] PCP - General Internal Medicine 11/08/21 Radha Macias NP [address] [place] [address] [email or web address] Historical LMR Provider 03/14/17 06/22/19 Catina Ortega FNP [address] [place] [address]. [address], [address] [place] [address] Historical LMR Provider 03/14/17 06/22/19 Hammad Garcia MD [address] [place] [address] [address] [place] [address] [email or web address] Historical LMR Provider 03/14/17 06/22/19 Amanda Knight PA [address] [place] [address] Historical LMR Provider 03/14/17 06/22/19 Jake Sargent MD [address] [place] [address] [email or web address] Insurance Assigned Provider 09/29/17 09/28/18 Bj Skinner MD [address] [place] [address] [address] [place] [address] Obstetrics and Gynecology 06/26/19 Pino Obrien MD [address] [place] [address] [email or web address] Gastroenterology 09/10/19 Tulio Nichole MD [address] [place] [address] Insurance Assigned Provider 12/01/19 06/05/20 documented as of this encounter Additional Source Comments The information contained in this document represents components of the legal health record. It is not the complete legal health record.Located [facility]
== END 2025-04-20 08:55 | disposition home or self-care (01) ==
PROVIDERS: PCP Internal Medicine; Visit Provider Physician Assistant Medical
DX: J02.9 Acute pharyngitis, unspecified (principal); R09.81 Nasal congestion; Z13.9 Encounter for screening, unspecified

== ENCOUNTER 2025-04-20 08:10 | Outpatient (REF) | payer OTHER, SELFPAY ==
[2025-04-20 11:29] LABS: Resp Syncy Virus RNA Qual PCR NEGATIVE (Negative); SARS COV2 PCR INHOUSE NEGATIVE (Negative)
== END 2025-04-20 08:11 | disposition home or self-care (01) ==
LOC: HO.LAB 08:10
PROVIDERS: Physician Assistant Medical; PCP Internal Medicine
DX: R09.81 Nasal congestion (principal); J02.9 Acute pharyngitis, unspecified; Z87.891 Personal history of nicotine dependence; Z79.899 Other long term (current) drug therapy
CPT/HCPCS: 87637; 87880